=== PATIENT | female | born 1965 | race Two or more races ===

== ENCOUNTER → 2022-11-29 | Outpatient (CLI) | payer MEDICAID ==
[2022-11-29 12:31] LABS: Basophils # (auto) 0 10 ^3/uL (0-0.2); Eosinophils # (auto) 0.2 10 ^3/uL (0-0.8); Hemoglobin 12.2 g/dL (12.2-16.2); Lymphocytes # (auto) 2.5 10 ^3/uL (0.4-5.4); Lymphocytes % (auto) 32.8 % (10.0-50.0); Nucleated Red Blood Cells % 0.1 %
[2022-11-29 12:33] LABS: Basophils % (auto) 0.5 % (0.0-2.0); Eosinophils % (auto) 2.9 % (0.0-7.0); Hematocrit 37.3 % (36.0-46.0); Mean Corpuscular Hemoglobin 25.8 pg (28.0-32.0); Mean Corpuscular Hgb Conc. 32.8 g/dL (32.0-36.0); Mean Corpuscular Volume 78.7 fL (80.0-100.0); Monocytes # (auto) 0.4 10 ^3/uL (0-1.3); Monocytes % (auto) 5.8 % (0.0-12.0); Neutrophils # (auto) 4.4 10 ^3/uL (1.6-8.6); Red Blood Cells 4.74 10^6/uL (4.0-5.20); Red Cell Distribution Width 17.3 % (11.8-14.3); White Blood Cell 7.6 10^3/uL (4.4-10.8)
[2022-11-29 12:47] LABS: Urine Bacteria FEW /hpf (None Seen); Urine Blood 3+ /uL (Negative); Urine Hyaline Cast FEW /lpf (0 - 2); Urine Specific Gravity 1.006 (1.001-1.035); Urine WBC 2 /hpf (0 - 5)
[2022-11-29 13:29] LABS: Albumin 3.5 g/dL (3.4-5.0); Calcium 9.1 mg/dL (8.5-10.1); Potassium 3.7 mmol/L (3.5-5.1)
[2022-11-29 13:36] LABS: BUN/Creatinine Ratio 19.2; Bilirubin, Total 0.4 mg/dL (0.2-1.0); Total Protein 7.5 g/dL (6.4-8.2)
[2022-11-30 08:06] LABS: RPR Non Reactive (Non Reactive)
== END | disposition home or self-care (01) ==
LOC: LAB 12:00
DX: Z00.00 Encounter for general adult medical examination without abnormal findings (principal); E11.9 Type 2 diabetes mellitus without complications; Z11.8 Encounter for screening for other infectious and parasitic diseases
CPT/HCPCS: 36415; 80053; 80061; 81001; 82306; 83036; 84439; 84443; 85025; 86592; 86703; 87086

== ENCOUNTER 2022-12-19 10:09 | Emergency (ER) | payer MEDICAID ==
[~2022-12-19] VITALS: Ht 165.1 cm; Wt 86.0 kg
[2022-12-19 12:53] VITALS: BP 130/78
== END 2022-12-19 12:54 | disposition home or self-care (01) ==
LOC: ER 10:09
DX: E11.319 Type 2 diabetes mellitus with unspecified diabetic retinopathy without macular edema (principal)

== ENCOUNTER 2023-03-01 21:57 | Inpatient (IN) | payer MEDICAID ==
[~2023-03-01] VITALS: Ht 165.1 cm; Wt 92.7 kg
[2023-03-01 22:55] LABS: Basophils # (auto) 0.1 10 ^3/uL (0-0.2); Basophils % (auto) 0.6 % (0.0-2.0); Eosinophils # (auto) 0.3 10 ^3/uL (0-0.8); Eosinophils % (auto) 3.2 % (0.0-7.0); Hematocrit 34.6 % (36.0-46.0); Hemoglobin 11.2 g/dL (12.2-16.2); Lymphocytes # (auto) 2.2 10 ^3/uL (0.4-5.4); Lymphocytes % (auto) 26.9 % (10.0-50.0); Mean Corpuscular Hemoglobin 26.9 pg (28.0-32.0); Mean Corpuscular Hgb Conc. 32.5 g/dL (32.0-36.0); Mean Corpuscular Volume 82.6 fL (80.0-100.0); Monocytes # (auto) 0.7 10 ^3/uL (0-1.3); Monocytes % (auto) 8.4 % (0.0-12.0); Neutrophils % (auto) 60.9 % (37.0-80.0); Red Blood Cells 4.19 10^6/uL (4.0-5.20); Red Cell Distribution Width 14.2 % (11.8-14.3); White Blood Cell 8.2 10^3/uL (4.4-10.8)
[2023-03-01 23:06] LABS: Albumin 3.4 g/dL (3.4-5.0); BUN/Creatinine Ratio 19.3 (10.0-20.0); Calcium 9.2 mg/dL (8.5-10.1); Potassium 4.3 mmol/L (3.5-5.1)
[2023-03-01 23:09] LABS: Bilirubin, Total 0.2 mg/dL (0.2-1.0); Total Protein 7.3 g/dL (6.4-8.2)
[2023-03-02 00:40] LABS: Urine Bacteria NONE SEEN /hpf (None Seen); Urine Blood Negative /uL (Negative); Urine Specific Gravity 1.032 (1.001-1.035); Urine WBC 1 /hpf (0 - 5)
[2023-03-02] MEDS ORDERED: TEMAZEPAM 15 MG CAP PO PRN (02:45)
[2023-03-02] MEDS ORDERED: ACETAMINOPHEN 325 MG TAB PO PRN (02:45)
[2023-03-02] MEDS ORDERED: DEXTROSE (50%) 50ML SYRG IV PRN (02:45)
[2023-03-02] MEDS ORDERED: ONDANSETRON HCL 4 MG/2 ML VIAL IV PRN (02:45)
[2023-03-02] MEDS: ACCU-CHEK COMFORT CURVE STRIP VI SCH ×5 (04:17→21:17)
[2023-03-02] MEDS: InsuLIN REG 1unit/0.01ml Soln (100units/ml) SC SCH ×5 (04:19→21:27)
[2023-03-02] MEDS: PANTOPRAZOLE 40 MG TAB PO SCH (08:59)
[2023-03-02] MEDS ORDERED: ERGO1CAP12 PO (15:29)
[2023-03-02] MEDS ORDERED: EMPA1TAB PO (15:29)
[2023-03-02] MEDS ORDERED: INSU1INJ19 SC (15:29)
[2023-03-02] MEDS ORDERED: METF-372 PO (15:29)
[2023-03-02 17:16] VITALS: BP 114/59
[2023-03-02 22:00] VITALS: BP 107/55
[2023-03-03] MEDS: ACCU-CHEK COMFORT CURVE STRIP VI SCH ×4 (00:03→12:00)
[2023-03-03] MEDS: InsuLIN REG 1unit/0.01ml Soln (100units/ml) SC SCH ×4 (00:06→12:00)
[2023-03-03 05:00] VITALS: BP 121/40
[2023-03-03 07:25] LABS: Calcium 8.8 mg/dL (8.5-10.1); Potassium 4.1 mmol/L (3.5-5.1)
[2023-03-03 07:28] LABS: BUN/Creatinine Ratio 29.2 (10.0-20.0)
[2023-03-03 09:00] VITALS: BP 102/48
[2023-03-03] MEDS: PANTOPRAZOLE 40 MG TAB PO SCH (10:00)
[2023-03-03 13:15] VITALS: BP 102/48
== END 2023-03-03 13:45 | disposition home or self-care (01) | DRG 812 ==
LOC: EDBD 21:57 → ER 21:57 → OVERFLOW 03-02 02:37 → WEST WING 03-02 14:24
PROVIDERS: ADMIT Nurse Practitioner; ATTEND Internal Medicine
DX: T38.3X1A Poisoning by insulin and oral hypoglycemic [antidiabetic] drugs, accidental (unintentional), initial encounter (principal); E11.9 Type 2 diabetes mellitus without complications; E66.9 Obesity, unspecified; Y92.89 Other specified places as the place of occurrence of the external cause; Z68.34 Body mass index [BMI] 34.0-34.9, adult
CPT/HCPCS: 36415; 70450; 71045; 80048; 80053; 81001; 82962; 84484; 85025; 93005; G0378; J1815

== ENCOUNTER 2023-12-29 19:35 | Emergency (ER) | payer MEDICAID ==
[~2023-12-29] VITALS: Ht 165.1 cm; Wt 91.3 kg
[~2023-12-29 19:35] MED LIST: EMPA1TAB PO; ERGO1CAP12 PO; INSU1INJ19 SC; METF-372 PO
[2023-12-29 19:54] VITALS: BP 107/44; PULSE 60; RESP 16; TEMP 98; O2SAT 99
[2023-12-30] MEDS: IBUPROFEN 400 MG TAB PO ONE (00:01)
== END 2023-12-30 00:05 | disposition home or self-care (01) ==
LOC: ER 19:35
DX: L03.011 Cellulitis of right finger (principal); E11.9 Type 2 diabetes mellitus without complications
CPT/HCPCS: 10060; 82962